=== PATIENT | female | born 1980 | race Caucasian/White ===

== ENCOUNTER 2018-08-28 10:49 | Day surgery (SDC) | payer OTHER ==
[~2018-08-28 10:49] MED LIST: ANAprox Ds 550mg TAB PO; NIFE60TA3 PO; NIFEDIPINE20 MG PO
[2018-08-28] MEDS ORDERED: PERCOCET 5-3251 EACH PO (14:36)
== END 2018-08-28 17:20 | disposition home or self-care (01) ==
LOC: CIR.AMB 10:49 → SURH 14:00 → CIR.AMB 14:00 → EDSTATUS 14:00 → CIR.AMB 17:20
DX: K81.1 Chronic cholecystitis (principal)

== ENCOUNTER 2019-04-02 07:32 | Outpatient (CLI) | payer OTHER ==
[~2019-04-02 07:32] MED LIST changes: +PERCOCET 5-3251 EACH PO
== END 2019-04-02 07:43 | disposition home or self-care (01) ==
LOC: SONOGRAMA 07:32
DX: N60.11 Diffuse cystic mastopathy of right breast (principal); N60.12 Diffuse cystic mastopathy of left breast; N63.21 Unspecified lump in the left breast, upper outer quadrant